=== PATIENT | male | born 1975 | race Caucasian/White ===

== ENCOUNTER 2023-11-21 11:09 | Emergency (ER) | payer OTHER, SELFPAY ==
[2023-11-21 11:19] VITALS: BP 147/69; PULSE 115; RESP 18; TEMP 37; O2SAT 98; BMI 23.7
[2023-11-21] MEDS: KETOROLAC 30 MG/ML VIAL 15 MG IV (12:26)
[2023-11-21] MEDS: ACETAMINOPHEN 325 MG TABLET 975 MG PO (12:26)
[2023-11-21] MEDS: SODIUM CHLORIDE 0.9% 1,000 ML 1000 ML IV (12:27)
[2023-11-21] MEDS: DEXAMETHASONE 10 MG/ML VIAL IV (12:29)
[2023-11-21] MEDS: diphenhydrAMINE 50 MG/ML VIAL 25 MG IV (12:31)
[2023-11-21] MEDS: METOCLOPRAMIDE 10 MG/2 ML INJ IV (12:34)
[2023-11-21 13:34] VITALS: BP 117/67; PULSE 89; RESP 18; O2SAT 97
--- NOTE | 2023-11-21 13:34 | DI.CT.S_ITS ---
PROCEDURE: CT HEAD/BRAIN WO CON INDICATIONS: headache TECHNIQUE: Noncontrast 4.5 mm thick angled axial sections acquired from the foramen magnum to the vertex, with coronal and sagittal reformats. For radiation dose reduction, the following was used: automated exposure control, adjustment of mA and/or kV according to patient size. COMPARISON: None. FINDINGS: Image quality: Diagnostic. CSF spaces: Basal cisterns are patent. No extra-axial fluid collections. Ventricles are normal in size and shape. Brain: No midline shift. No intracranial masses or hemorrhage. Hess-white matter interface is normal. Skull and face: Calvarium and visualized facial bones are intact, without suspicious lesions. Sinuses: Visualized sinuses and mastoids are clear. IMPRESSION: No acute intracranial pathology. Dictated by: Sla Marquez M.D. on 11/21/2023 at 14:22 Approved by: Sal Marquez M.D. on 11/21/2023 at 14:24
--- NOTE | 2023-11-21 14:51 | ED_ITS ---
HPI - Headache <Arben Pyle PA-C - Last Filed: 11/21/23 14:56> General Chief Complaint: Headache Stated Complaint: head pressure, nausea, aching Time Seen by Provider: 11/21/23 11:28 Mode of arrival: Ambulatory History of Present Illness HPI Narrative: 48-year-old male with no reported past medical history presents to the ED with 2 weeks of frontal headache. Patient describes the headache as pressure inside the head and behind the eyes. Patient also endorses some associated nausea. Patient denies fever, chills, rhinorrhea, cough, sore throat, chest pain, shortness of breath, vomiting, abdominal pain, dysuria, lightheadedness, di zziness, syncope. No trauma. Patient does not normally get frequent headaches. Related Data Allergies Allergy/AdvReac Type Severity Reaction Status Date / Time No Known Drug Allergies Allergy Verified 11/21/23 11:19 Review of Systems <Arben Pyle PA-C - Last Filed: 11/21/23 14:56> Constitutional Constitutional: Denies chills, Denies fatigue, Denies fever(s), Denies frequent falls, Reports headache(s), Denies lethargy and Denies weakness Eyes Eyes: Denies change in vision, Denies eye discharge, Denies irritation and Denies loss of vision ENT Ears, Nose, Mouth, and Throat: Denies change in voice, Denies dizziness, Reports headache(s), Denies neck pain, Denies sore throat and Denies throat swelling Cardiovascular Cardiovascular: Denies chest pain, Denies irregular heart rhythm, Denies lightheadedness, Denies palpitations, Denies dyspnea, Denies dyspnea on exertion and Denies orthopnea Respiratory Respiratory: Denies cough, Denies dyspnea, Denies dyspnea on exertion and Denies wheezing Gastrointestinal Gastrointestinal: Denies abdominal pain, Denies change in bowel habits, Denies diarrhea, Reports nausea and Denies vomiting Musculoskeletal Musculoskeletal: Denies neck pain and Denies numbness Integumentary/Breasts Skin/Breast: Denies pruritus, Denies erythema, Denies rash and Denies wounds Neurologic Neurologic: Denies behavioral changes, Denies confusion, Denies dizziness, Denies frequent falls, Reports headache(s), Denies loss of vision, Denies numbness and Denies weakness Psychiatric Psychiatric: Denies anxiety, Denies behavioral changes, Denies confusion, Denies depression, Denies homicidal ideation and Denies suicidal ideation Endocrine Endocrine: Denies fatigue, Denies flushing and Denies palpitations Hematologic/Lymphatic Hematologic/Lymphatic: Denies easy bruising Allergic/Immunologic Allergic/Immunologic: Denies urticaria, Denies throat swelling and Denies wheezing Patient History <Arben Pyle PA-C - Last Filed: 11/21/23 14:56> Social History Smoking Status: Never smoker Smoking Status: Never smoker Substance Use Type: does not use Exam <Arben Pyle PA-C - Last Filed: 11/21/23 14:56> Narrative Exam Narrative: Const General:?cooperative, healthy appearing and comfortable HENMT Head:?normal to inspection Ears:?hearing grossly normal bilaterally Nose:?external nose normal Face and sinus:?normal facial exam and sinuses nontender Mouth:?oral mucosae normal Throat:?posterior oropharynx normal Eyes General:?appearance normal, both eyes and all related structures Neck Neck:?normal visual inspection and no lymphadenopathy noted Resp Effort & Inspection:?normal respiratory effort Auscultation:?clear to auscultation bilaterally Cardio Rate:?regular rate Rhythm:?regular rhythm Neuro General:?patient alert, patient awake and patient oriented x3; CN 1 through 12 intact bilaterally; gait is normal; PERRLA Initial Vital Signs Initial Vital Signs: Vital Signs Temperature 98.6 F 11/21/23 11:19 Pulse Rate 115 H 11/21/23 11:19 Respiratory Rate 18 11/21/23 11:19 Blood Pressure 147/69 H 11/21/23 11:19 Pulse Oximetry 98 11/21/23 11:19 Oxygen Delivery Method Room Air 11/21/23 11:19 <Patty Vega DO - Last Filed: 11/22/23 08:12> Initial Vital Signs Initial Vital Signs: Vital Signs Temperature 98.6 F 11/21/23 11:19 Pulse Rate 115 H 11/21/23 11:19 Respiratory Rate 18 11/21/23 11:19 Blood Pressure 147/69 H 11/21/23 11:19 Pulse Oximetry 98 11/21/23 11:19 Oxygen Delivery Method Room Air 11/21/23 11:19 Course <Arben Pyle PA-C - Last Filed: 11/21/23 14:56> Orders Ordered: Discontinued Medications Acetaminophen (Acetaminophen 325 Mg Tablet) 975 mg PO NOW ONE Stop: 11/21/23 12:05 Last Admin: 11/21/23 12:26 Dose: 975 mg Documented By: MLClare Dexamethasone (Dexamethasone 10 Mg/Ml Vial) 10 mg IV NOW ONE Stop: 11/21/23 12:06 Last Admin: 11/21/23 12:29 Dose: 10 mg Documented By: MLClare Diphenhydramine HCl (Diphenhydramine 50 Mg/Ml Vial) 25 mg IV NOW ONE Stop: 11/21/23 12:06 Last Admin: 11/21/23 12:31 Dose: 25 mg Documented By: MLClare Sodium Chloride (Normal Saline 0.9%) 1,000 mls @ 1,000 mls/hr IV BOLUS ONE Stop: 11/21/23 13:04 Last Infusion: 11/21/23 13:30 Dose: Infused Documented By: MLClare Admin: 11/21/23 12:27 Dose: 1,000 mls/hr Documented By: MLClare Ketorolac Tromethamine (Ketorolac 30 Mg/Ml Vial) 15 mg IV NOW ONE Stop: 11/21/23 12:07 Last Admin: 11/21/23 12:26 Dose: 15 mg Documented By: MLClare Metoclopramide HCl (Metoclopramide 10 Mg/2 Ml Inj) 10 mg IV NOW ONE Stop: 11/21/23 12:06 Last Admin: 11/21/23 12:34 Dose: 10 mg Documented By: MLClare Vital Signs Vital signs: Vital Signs - 8 hr 11/21/23 11:19 11/21/23 13:34 Temperature 98.6 F Pulse Rate 115 H 89 Respiratory Rate 18 18 Blood Pressure 147/69 H 117/67 Pulse Oximetry 98 97 Oxygen Delivery Method Room Air Room Air <Patty Vega DO - Last Filed: 11/22/23 08:12> Orders Ordered: Discontinued Medications Acetaminophen (Acetaminophen 325 Mg Tablet) 975 mg PO NOW ONE Stop: 11/21/23 12:05 Last Admin: 11/21/23 12:26 Dose: 975 mg Documented By: MLClare Dexamethasone (Dexamethasone 10 Mg/Ml Vial) 10 mg IV NOW ONE Stop: 11/21/23 12:06 Last Admin: 11/21/23 12:29 Dose: 10 mg Documented By: TOMEKA Diphenhydramine HCl (Diphenhydramine 50 Mg/Ml Vial) 25 mg IV NOW ONE Stop: 11/21/23 12:06 Last Admin: 11/21/23 12:31 Dose: 25 mg Documented By: TOMEKA Sodium Chloride (Normal Saline 0.9%) 1,000 mls @ 1,000 mls/hr IV BOLUS ONE Stop: 11/21/23 13:04 Last Infusion: 11/21/23 13:30 Dose: Infused Documented By: Admin: 11/21/23 12:27 Dose: 1,000 mls/hr Documented By: TOMEKA Ketorolac Tromethamine (Ketorolac 30 Mg/Ml Vial) 15 mg IV NOW ONE Stop: 11/21/23 12:07 Last Admin: 11/21/23 12:26 Dose: 15 mg Documented By: TOMEKA Metoclopramide HCl (Metoclopramide 10 Mg/2 Ml Inj) 10 mg IV NOW ONE Stop: 11/21/23 12:06 Last Admin: 11/21/23 12:34 Dose: 10 mg Documented By: TOMEKA Vital Signs Vital signs: Vital Signs - 8 hr 11/21/23 11:19 11/21/23 13:34 Temperature 98.6 F Pulse Rate 115 H 89 Respiratory Rate 18 18 Blood Pressure 147/69 H 117/67 Pulse Oximetry 98 97 Oxygen Delivery Method Room Air Room Air MDM - Headache <Arben Pyle PA-C - Last Filed: 11/21/23 14:56> MDM Narrative Medical decision making narrative: 48-year-old male with no reported past medical history presents to the ED with 2 weeks of frontal headache. Patient's symptoms most consistent with a primary headache. No red flag symptoms. Will treat with IV fluids, Reglan, Benadryl, dexamethasone, Toradol, Tylenol. Will reassess. Patient's headache went down from a 8/10 to 5/10 after medications. Will order a head CT. Will reassess. Head CT without acute findings. Upon reexamination, patient is still neurologically intact and reports that his symptoms have resolved at this time. Patient no longer has a headache or nausea. Discussed findings with patient. Recommend good hydration. Recommend Zyrtec or Claritin for seasonal allergies and to maintain it for the length of the allergy season. Recommend follow-up with PCP as soon as possible. ED return precautions discussed with patient. Patient verbalized understanding. Medical records reviewed: Yes Discharge Plan Departure Patient Disposition: Home Clinical Impression: Headache Instructions: DI for Headache Activity Restrictions/Additional Instructions: You were evaluated in the ED today for a headache and nausea. Your CT of the head was normal. Your symptoms resolved with IV fluids, Reglan, Benadryl, dexamethasone, Toradol, Tylenol. Please continue to stay well hydrated. You may take Zyrtec or Claritin once a day for the entirety of allergy season to control symptoms from seasonal allergies. Both medications are [id number]. Please follow-up with your PCP as soon as possible for further evaluation. Return to the ED if you have worsening symptoms, persistent vomiting, vision changes. Stand Alone Forms: Patient Portal/API ED Sign-out <Patty Vega DO - Last Filed: 11/22/23 08:12> Cosign ED Attending Cosjeffature Attestation: I was immediately available in the department for consultation.
[2023-11-21 15:04] VITALS: BP 111/53; PULSE 80; RESP 18; TEMP 36.5; O2SAT 95
== END 2023-11-21 15:06 | disposition home or self-care (01) ==
PROVIDERS: Emergency Provider Student in an Organized Health Care Education/Training Program
DX: R51.9 Headache, unspecified (principal)
CPT/HCPCS: 36415; 70450; 96361; 96374; 96375; 99284; J1100; J1200; J1885; J2765